=== PATIENT | male | born 1955 | race Caucasian/White ===

== ENCOUNTER 2020-10-09 10:42 | Emergency (ER) | payer MEDICARE ==
[~2020-10-09] VITALS: Ht 182.9 cm; Wt 86.3 kg
--- NOTE | 2020-10-09 11:19 | RAD ---
XR ELBOW COMPLETE_RIGHT 3+ VIEWS 10/09/2020 11:00 AM INDICATION: Pain after fall COMPARISON: None available. TECHNIQUE: 3 views of the right elbow are provided. FINDINGS/ IMPRESSION: There is no acute fracture or dislocation. There is elevation of the anterior fat pad which may be wi thin normal limits versus associated with small elbow joint effusion. Joint spaces are maintained. Shady ne mineralization is within normal limits. Regional soft tissues are within normal limits. There is n o soft tissue gas or osseous erosion. No radiopaque foreign body. If symptoms persist, recommend repe at evaluation in 7-10 days. Electronically signed by: Jerri Del Rio MD (10/09/2020 11:17 AM) [id number]
[2020-10-09 12:00] VITALS: BP 138/79
--- NOTE | 2020-10-09 12:19 | PHYS DOC ---
Past History Past Medical History: No Pertinent History Past Surgical History: Pneumothorax, Other Alcohol Use: Occasionally General Adult EDM: Chief Complaint: ELBOW PROBLEM HPI: HPI: Patient is a 65-year-old male who presents with right elbow pain. Patient states last night he was walking through a doorway when he hit his elbow on the doorway. Pain with adduction and abduction of arm. Pain is localized to right elbow. Denies taking anything for pain at home. Denies ellie history. Patient is poor historian. Review of Systems: Review of Systems: Constitutional: Denies fever or chills Eyes: Denies change in visual acuity HENT: Denies nasal congestion or sore throat Respiratory: Denies cough or shortness of breath Cardiovascular: Denies chest pain or edema GI: Denies abdominal pain, nausea, vomiting, bloody stools or diarrhea : Denies dysuria Musculoskeletal: Denies back pain or right elbow pain Integument: Denies rash Neurologic: Denies headache, focal weakness or sensory changes Endocrine: Denies polyuria or polydipsia Lymphatic: Denies swollen glands Psychiatric: Denies depression or anxiety Allergies: Allergies: Allergies Coded Allergies Type Severity Reaction Last Updated Verified No Known Drug Allergies 10/09/20 No Physical Exam: PE: Constitutional: Well developed, well nourished, no acute distress, non-toxic appearance. [] HENT: Normocephalic, atraumatic, bilateral external ears normal, oropharynx moist, no oral exudates, nose normal. [] Eyes: PERRLA, EOMI, conjunctiva normal, no discharge. [] Neck: Normal range of motion, no tenderness, supple, no stridor. [] Cardiovascular:Heart rate regular rhythm, no murmur [] Lungs & Thorax: Bilateral breath sounds clear to auscultation [] Abdomen: Bowel sounds normal, soft, no tenderness, no masses, no pulsatile masses. [] Skin: Warm, dry, no erythema, no rash. [] Back: No tenderness, no CVA tenderness. [] Extremities: right elbow tenderness, pain with abduction and adduction, Neurologic: Alert and oriented X 3, normal motor function, normal sensory function, palpable pulse distally Psychologic: Affect normal, judgement normal, mood normal. [] Current Patient Data: Vital Signs: Vital Signs Date Time Temp Pulse Resp B/P (MAP) Pulse Ox O2 Delivery O2 Flow Rate FiO2 2/2/21 10:49 98.1 80 16 131/91 (104) 98 Room Air EKG: EKG: [] Radiology/Procedures: Radiology/Procedures: []XR ELBOW COMPLETE_RIGHT 3+ VIEWS 10/09/2020 11:00 AM INDICATION: Pain after fall COMPARISON: None available. TECHNIQUE: 3 views of the right elbow are provided. FINDINGS/ IMPRESSION: There is no acute fracture or dislocation. There is elevation of the anterior fat pad which may be within normal limits versus associated with small elbow joint effusion. Joint spaces are maintained. Bone mineralization is within normal limits. Regional soft tissues are within normal limits. There is no soft tissue gas or osseous erosion. No radiopaque foreign body. If symptoms persist, recommend repeat evaluation in 7-10 days. Electronically signed by: Jerri Del Rio MD (10/09/2020 11:17 AM) [id number] Heart Score: Risk Factors: Risk Factors: DM, Current or recent (<one month) smoker, HTN, HLP, family history of CAD, obesity. Risk Scores: Score 0 - 3: 2.5% MACE over next 6 weeks - Discharge Home Score 4 - 6: 20.3% MACE over next 6 weeks - Admit for Clinical Observation Score 7 - 10: 72.7% MACE over next 6 weeks - Early Invasive Strategies Course & Med Decision Making: Course & Med Decision Making Pertinent Labs and Imaging studies reviewed. (See chart for details) []Patient is a 65-year-old male who presents with right elbow pain. Patient states last night he was walking through a doorway when he hit his elbow on the doorway. Pain with adduction and abduction of arm. Pain is localized to right elbow. Denies taking anything for pain at home. Denies ellie history. Patient is poor historian. X-ray of elbow is negative for fracture. Given arm sling, patient needs to follow-up with PCP in 7 days for repeat x-ray. Ibuprofen given in the emergency room for discomfort. Patient given instructions for RICE. Dragon Disclaimer: Ani Disclaimer: This electronic medical record was generated, in whole or in part, using a voice recognition dictation system. Departure Departure: Impression: Primary Impression: Elbow contusion Qualified Codes: S50.01XA - Contusion of right elbow, initial encounter Disposition: 01 DC HOME SELF CARE/HOMELESS Condition: STABLE Referrals: JORDI WALTER (PCP) Patient Instructions: Elbow Contusion, [id number] Additional Instructions: You were seen in the emergency room today for right elbow pain. We have provided an arm sling for you to wear. Please follow-up with your PCP in 7 days for repeat x-ray to make sure there is not a fracture. Please return to the emergency room with worsening symptoms or concerns EMERGENCY DEPARTMENT GENERAL DISCHARGE INSTRUCTIONS Thank you for coming to [facility] (ED) today and trusting us with you care. We trust that you had a positivie experience in our Emergency Department. If you wish to speak to the department management, you may call the director at [phone]. YOUR FOLLOW UP INSTRUCTIONS ARE FOLLOWS: 1. Do you have a private Doctor? If you do not have a private doctor, please ask for a resource list of physicians or clinics that may be able to assist you with follow up care. 2. The Emergency Physician has interpreted your x-rays. The X-Ray specialist will also review them. If there is a change in the findings, you will be notified in 48 hours when at all possible. 3. A lab test or culture has been done, your results will be reviewed and you will be notified if you need a change in treatment. ADDITIONAL INSTRUCTIONS AND INFORMATION: 1. Your care today has been supervised by a physician who is specially trained in emergency care. Many problems require more than one evaluation for a complete diagnosis and treatment. We recommend that you schedule your follow up appointment as recommended to ensure complete treatment of you illness or injury. If you are unable to obtain follow up care and continue to have a problem, or if your condition worsens, we recommend that you return to the ED. 2. We are not able to safely determine your condition over the phone nor are we able to give sound medical advice over the phone. For these safety reasons, if you call for medical advice we will ask you to come to the ED for further evaluation. 3. If you have any questions regarding these discharge instructions please call the ED at [phone]. SAFETY INFORMATION: In the interest of safety, wellness, and injury prevention; we encourage you to wear your sealbelt, if you smoke; quite smoking, and we encourage family to use a protective helmet for bicycling and other sporting events that present an increased risk for head injury. IF YOUR SYMPTOMS WORSEN OR NEW SYMPTOMS DEVELOP, OR YOU HAVE CONCERNS ABOUT YOUR CONDITION; OR IF YOUR CONDITION WORSENS WHILE YOU ARE WAITING FOR YOUR FOLLOW UP APPOINTMENT; EITHER CONTACT YOUR PRIMARY CARE DOCTOR, THE PHYSICIAN WHOSE NAME AND NUMBER YOU WERE GIVEN, OR RETURN TO THE ED IMMEDIATELY. MEAGAN MARQUEZ APRN Oct 09, 2020 12:19
[2020-10-09] MEDS ORDERED: IBUPROFEN 600 MG TABLET. PO ONE (12:30)
== END 2020-10-09 12:42 | disposition home or self-care (01) ==
LOC: ER 10:42
DX: S50.01XA Contusion of right elbow, initial encounter (principal); W22.8XXA Striking against or struck by other objects, initial encounter; Y93.01 Activity, walking, marching and hiking; Y92.89 Other specified places as the place of occurrence of the external cause; Y99.8 Other external cause status
CPT/HCPCS: 73080; 99284